=== PATIENT | male | born 1970 | race Caucasian/White ===

== ENCOUNTER → 2016-03-29 | Outpatient (CLI) | payer OTHER ==
--- NOTE | 2016-03-29 14:57 | DX ---
Chest, PA and Lateral History: Cough x3 months Comparison: October 18, 2012 Findings: Lungs are clear, without infiltrate or consolidation. Heart size is normal. There is no oswaldo nopathy or mass lesion. There is no pleural effusion, pneumomediastinum or pneumothorax. Bones are un remarkable for age. Impression: Stable and normal.
== END ==
LOC: CIMAGING 13:49
PROVIDERS: ATTEND Physician Assistant Medical
DX: R05 Cough (principal)
CPT/HCPCS: 71020-PO